=== PATIENT | female | born 1960 | race Two or more races ===

== ENCOUNTER 2024-05-07 14:12 | Inpatient (IN) | payer MEDICAID, OTHER ==
[~2024-05-07] VITALS: Ht 157.5 cm; Wt 98.4 kg
--- NOTE | 2024-05-07 14:55 | DVH ---
CT HEAD WITHOUT CONTRAST INDICATION: DIZZINESS EXAM DATE: 05/07/2024 02:35 PM COMPARISON: None RADIATION DOSE: CTDIvol: 54 mGy, DLP: 865 mGy*cm PROCEDURE: CT scans of the head were obtained from the vertex to the skull base. Sagittal and coronal reconstructions were provided. All CT scans at this medical facility are performed using dose modulation techniques as appropriate t o a performed exam including the following: Automated exposure control was utilized; adjustment of th e MA and/or KV according to patient size; and use of iterative reconstruction technique. FINDINGS: Left temporal, parietal lobe encephalomalacia with a left temporal craniectomy defect. The re is sulcal and ventricular prominence. The brain otherwise shows normal morphology and see-white m atter differentiation, without intracranial hemorrhage, extra-axial fluid collection, mass effect or acute large vessel infarct. The basal cisterns are patent. The skull and visible facial bones are int act. The paranasal sinuses, mastoid air cells and middle ear cavities are well-aerated. The soft tiss ues of the scalp are unremarkable. IMPRESSION: Left temporal, parietal lobe encephalomalacia with a left temporal craniectomy defect. No acute intracranial abnormality.
--- NOTE | 2024-05-07 14:58 | ED.PDOC ---
History of Present Illness HPI Comments 63 year old female presents to the ED with a chief complaint of facial numbness onset today. Patient states she is currently experiencing LT sided facial numbness, Lt side weakness and dizziness. Patient has a PMHx fibromyalgia and Aneurysm. Denies chest pain, shortness of breath, nausea, vomiting, diarrhea. No other symptoms or modifying factors present at this time. Chief Complaint: Dizziness Time Seen by MD: 14:42 Primary Care Provider: NONE Reviewed Notes: Medications, Allergies Allergies: Coded Allergies: NO KNOWN ALLERGIES (Unverified , 05/07/24) Information Source: Patient Mode of Arrival: Ambulatory Severity: Moderate Timing: Hours Duration: Since onset Prehospital treatment: None Past Medical History Surgical History: Denies all surgeries STUDY COORDINATOR History: No Pertinent STUDY COORDINATOR History Social History Smoker: Non-Smoker Alcohol: Denies ETOH Use Drugs: Denies Drug Use Lives In: Home Constitutional: denies: chills, diaphoresis, fatigue, fever, malaise, sweats, weakness, others EENTM: denies: blurred vision, double vision, ear bleeding, ear discharge, ear drainage, ear pain, ear ringing, eye pain, eye redness, hearing loss, mouth pain, mouth swelling, nasal discharge, nose bleeding, nose congestion, nose pain, photophobia, tearing, throat pain, throat swelling, voice changes, others Respiratory: denies: cough, hemoptysis, orthopnea, SOB at rest, shortness of breath, SOB with excertion, stridor, wheezing, others Cardiovascular: denies: chest pain, dizzy spells, diaphoresis, Dyspnea on exertion, edema, irregular heart beat, left arm pain, lightheadedness, palpitations, PND, syncope, others Gastrointestinal: denies: abdomen distended, abdominal pain, blood streaked bowels, constipated, diarrhea, dysphagia, difficulty swallowing, hematemesis, melena, nausea, poor appetite, poor fluid intake, rectal bleeding, rectal pain, vomiting, others Genitourinary: denies: abnormal vagina bleeding, burning, dyspareunia, dysuria, flank pain, frequency, hematuria, incontinence, pain, , vagina discharge, urgency, others Neurological: reports: dizziness, left sided numbness (facial ), numbness (facial); denies: fainting, headache, left sided weakness, paresthesia, pre- existing deficit, right sided numbness, right sided weakness, seizure, speech problems, tingling, tremors, weakness, others Musculoskeletal: denies: back pain, gout, joint pain, joint swelling, muscle pain, muscle stiffness, neck pain, others Integumetry: denies: bruises, change in color, change in hair/nails, dryness, laceration, lesions, lumps, rash, wounds, others Allergic/Immunocompromised: denies: Difficulty Healing, Frequent Infections, Hives, Itching, others Hematologic/Lymphatic: denies: anemia, blood clots, easy bleeding, easy bruising, swollen glands, others Endocrine: denies: excessive hunger, excessive sweating, excessive thirst, excessive urination, flushing, intolerance to cold, intolerance to heat, unexplained weight gain, unexplained weight loss, others Psychiatric: denies: anxiety, bipolar disorder, depression, hopeless, panic disorder, schizophrenia, sleepless, suicidal, others All Other Systems: Reviewed and Negative Physical Exam General Appearance: Moderate Distress HEENT: Normal ENT Inspection, Pharynx Normal, TMs Normal Neck: Full Range of Motion, Non-Tender, Normal, Normal Inspection Respiratory: Chest Non-Tender, Lungs Clear, No Accessory Muscle Use, No Respiratory Distress, Normal Breath Sounds Cardiovascular: No Edema, No JVD, No Murmur, No Gallop, Normal Peripheral Puls es, Regular Rate/Rhythm Breast Exam: Deferred Gastrointestinal: No Organomegaly, Non Tender, No Pulsatile Mass, Normal Bowel Sounds, Soft Genitalia: Deferred Pelvic: Deferred Rectal: Deferred Extremities: No calf tenderness, Normal capillary refill, Normal inspection, Normal range of motion, Non-tender, No pedal edema Musculoskeletal : Apperance: Normal Neurologic: Alert, 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 Was a procedure done?: No Differential Dx Considerations may include: Autonomic disorder. Electrolyte imbalance X-Ray, Labs, Meds, VS Vital Signs Date Time Temp Pulse Resp B/P (MAP) Pulse Ox O2 Delivery O2 Flow Rate FiO2 05/07/24 14:21 87 05/07/24 14:18 98.0 94 18 175/75 (108) 96 Lab Test 05/07/24 15:02 Range/Units White Blood Count 8.0 4.4-10.8 10^3/uL Red Blood Count 4.56 4.0-5.20 10^6/uL Hemoglobin 13.9 12.2-16.2 g/dL Hematocrit 40.7 36.0-46.0 % Mean Corpuscular Volume 89.3 80.0-100.0 fL Mean Corpuscular Hemoglobin 30.6 28.0-32.0 pg Mean Corpuscular Hemoglobin Concent 34.2 32.0-36.0 g/dL Red Cell Distribution Width 13.6 11.8-14.3 % Platelet Count 345 140-450 10^3/uL Mean Platelet Volume 8.7 6.9-10.8 fL Neutrophils (%) (Auto) 55.0 37.0-80.0 % Lymphocytes (%) (Auto) 35.4 10.0-50.0 % Monocytes (%) (Auto) 8.1 0.0-12.0 % Eosinophils (%) (Auto) 0.8 0.0-7.0 % Basophils (%) (Auto) 0.7 0.0-2.0 % Neutrophils # (Auto) 4.4 1.6-8.6 10 ^3/uL Lymphocytes # (Auto) 2.8 0.4-5.4 10 ^3/uL Monocytes # (Auto) 0.7 0-1.3 10 ^3/uL Eosinophils # (Auto) 0.1 0-0.8 10 ^3/uL Basophils # (Auto) 0.1 0-0.2 10 ^3/uL Nucleated Red Blood Cells 0.0 % Sodium Level 141 136-145 mmol/L Potassium Level 3.5 3.5-5.1 mmol/L Chloride Level 105 98-107 mmol/L Carbon Dioxide Level 31 20-31 mmol/L Anion Gap 5 5-15 Blood Urea Nitrogen 9 9-23 mg/dL Creatinine 0.67 0.550-1.02 mg/dL Glomerular Filtration Rate Calc 99 >90 mL/min BUN/Creatinine Ratio 13.4 10.0-20.0 Serum Glucose 99 74-106 mg/dL Calcium Level 9.6 8.7-10.4 mg/dL Patient alert. Complaining of dizziness. Vitals stable. Answering all questions. WBC within normal limits. Blood pressure elevated. Was given clonidine. CT of the head reviewed does not show any acute changes. Possibly will need MRI. Explained to the patient. Continue cardiac monitoring. Time of 1ST Reevaluation: 15:12 Reevaluation 1ST: Unchanged Patient Education/Counseling: Diagnosis, Treatment, Prognosis Family Education/Counseling: No Family Present Additional Information I reviewed the following notes from patient's past medical encounters: The following tests were ordered, and results were reviewed by me: EKG, CT HEAD WITHOUT CONTRAST, CBC, UA, BMP I reviewed and agreed with the following test results read by other providers:CT HEAD WITHOUT CONTRAST I discussed treatment and results with medical personnel and patient Departure 1 Departure Time of Disposition: 16:35 Impression: Primary Impression: Autonomic disorder Additional Impression: Hypertension Qualified Codes: I10 - Essential (primary) hypertension Disposition: ADMITTED INPATIENT Admit to: Med Surg Condition: Guarded Critical Care Note Critical Care Time?: No Stability Stability form required: No Heart Score Heart Score: Heart Score Response (Comments) Value History N/A 0 EKG N/A 0 Age N/A 0 Risk Factors N/A 0 Troponin N/A 0 Total 0 I personally scribed for ROBIN CASTORENA MD ([email or web address]) on 05/07/24 at 14:58. Electronically submitted by Sandrita Klein ([email or web address]). I personally scribed for ROBIN CASTORENA MD ([email or web address]) on 05/07/24 at 15:07. Electronically submitted by Sandrita Klein ([email or web address]). ROBIN CASTORENA MD May 07, 2024 14:58
[2024-05-07 15:29] LABS: Basophils # (auto) 0.1 10 ^3/uL (0-0.2); Basophils % (auto) 0.7 % (0.0-2.0); Eosinophils # (auto) 0.1 10 ^3/uL (0-0.8); Eosinophils % (auto) 0.8 % (0.0-7.0); Hematocrit 40.7 % (36.0-46.0); Hemoglobin 13.9 g/dL (12.2-16.2); Lymphocytes # (auto) 2.8 10 ^3/uL (0.4-5.4); Lymphocytes % (auto) 35.4 % (10.0-50.0); Mean Corpuscular Hemoglobin 30.6 pg (28.0-32.0); Mean Corpuscular Hgb Conc. 34.2 g/dL (32.0-36.0); Mean Corpuscular Volume 89.3 fL (80.0-100.0); Monocytes # (auto) 0.7 10 ^3/uL (0-1.3); Monocytes % (auto) 8.1 % (0.0-12.0); Neutrophils # (auto) 4.4 10 ^3/uL (1.6-8.6); Platelet Count (auto) 345 10^3/uL (140-450); Red Blood Cells 4.56 10^6/uL (4.0-5.20); Red Cell Distribution Width 13.6 % (11.8-14.3)
[2024-05-07 15:35] LABS: Chloride 105 mmol/L (98-107); Potassium 3.5 mmol/L (3.5-5.1); Sodium 141 mmol/L (136-145)
[2024-05-07 15:36] LABS: Anion Gap 5 (5-15); Calcium 9.6 mg/dL (8.7-10.4); Carbon Dioxide 31 mmol/L (20-31)
[2024-05-07 15:41] LABS: BUN/Creatinine Ratio 13.4 (10.0-20.0); Blood Urea Nitrogen 9 mg/dL (9-23); Glucose 99 mg/dL (74-106)
[2024-05-07] MEDS: cloNIDine HCL 0.1 MG TAB PO ONE (17:20)
[2024-05-07] MEDS: MECLIZINE HCL 25 MG TAB PO ONE (17:20)
--- NOTE | 2024-05-07 20:52 | DVHHPRES ---
History of Present Illness Resident Creating Document: NERI DE LUNA RESIDENT History of Present Illness This is a 63 years old female with past medical history of fibromyalgia, osteoarthritis, hypertension presented to the ED with a chief complaint of dizziness, tingling and numbness in the left face and arm for 1 days prior to this admission. The patient states that she started experiencing numbness in the left face, mostly in the lips and also numbness in the left upper arm associated with dizziness and pain in the back of the neck. She measured blood pressure in the home which was elevated. She also mentioned had history of leaking of brain aneurysm 20 years ago and underwent a procedure but she did not remember the name of the procedure. The patient denies headache, blurry of vision, chest pain, shortness of breath, diaphoresis abdominal pain, nausea, vomiting, any weakness in any parts of the body or any change in bowel and bladder habit. Past Medical History Fibromyalgia, osteoarthritis, hypertension, brain aneurysm Past Surgical History None Family History Type 2 diabetes mellitus and Alzheimer dementia runs in the family. Past Social History Lives with family Nonsmoker, nonalcoholic and never tried any drugs. Review of Systems Constitutional: No: Fever, Chills, Sweats, Weakness, Malaise, Other Eyes: No: Pain, Vision change, Conjunctivae inflammation, Eyelid inflammation, Other, Redness ENT: No: Ear pain, Ear discharge, Nose pain, Nose discharge, Nose congestion, Mouth pain, Mouth swelling, Throat pain, Throat swelling, Other Respiratory: No: Cough, Dry, Shortness of breath, SOB with excertion, Wheezing, Hemoptysis, Pleuritic Pain, Sputum, Wheezing, Other Cardiovascular: Lt Headedness; No: Chest Pain, Palpitations, Orthopnea, Paroxysmal Noc. Dyspnea, Edema, Other Gastrointestinal: No: Nausea, Vomiting, Abdominal Pain, Diarrhea, Constipation, Melena, Hematochezia, Other Genitourinary: No Dysuria, No Frequency, No Incontinence, No Hematuria, No Retention, No Other Musculoskeletal: No: other, neck pain, shoulder pain, arm pain, back pain, hand pain, leg pain, foot pain Skin: No: Rash, Lesions, Jaundice, Bruising, Other Neurological: No: Weakness, Numbness, Incoordination, Change in speech, Confusion, Seizures, Other Allergies: Coded Allergies: NO KNOWN ALLERGIES (Unverified , 05/07/24) Exam Vital Signs Vital Signs Date Time Temp Pulse Resp B/P (MAP) Pulse Ox O2 Delivery O2 Flow Rate FiO2 05/07/24 17:20 148/83 05/07/24 14:21 87 05/07/24 14:18 98.0 18 96 Exam Physical examination: General Appearance: Alert, Oriented X3, Cooperative, No acute distress HEENT: Atraumatic, PERRLA, EOMI, Mucous membrane moist/pink Respiratory: Clear to auscultation, Normal air movement Cardiovascular: Regular rate, Normal S1, Normal S2, No murmurs, no chest wall tenderness Abdominal: Normal bowel sounds, Soft, No tenderness, No hepatospenomegaly, No masses Extremities: No clubbing, No cyanosis, No edema, Normal pulses, No tenderness/swelling Skin: No rashes, No breakdown, No significant lesion Neuro: Normal gait, Normal speech, Strength at 5/5 X4 ext, Normal tone, Sensation intact, grossly intact cranial nerves. Psych/Mental Status: Mental status NL, Mood NL Labs/Xrays Labs Test 05/07/24 15:02 Range/Units White Blood Count 8.0 4.4-10.8 10^3/uL Red Blood Count 4.56 4.0-5.20 10^6/uL Hemoglobin 13.9 12.2-16.2 g/dL Hematocrit 40.7 36.0-46.0 % Mean Corpuscular Volume 89.3 80.0-100.0 fL Mean Corpuscular Hemoglobin 30.6 28.0-32.0 pg Mean Corpuscular Hemoglobin Concent 34.2 32.0-36.0 g/dL Red Cell Distribution Width 13.6 11.8-14.3 % Platelet Count 345 140-450 10^3/uL Mean Platelet Volume 8.7 6.9-10.8 fL Neutrophils (%) (Auto) 55.0 37.0-80.0 % Lymphocytes (%) (Auto) 35.4 10.0-50.0 % Monocytes (%) (Auto) 8.1 0.0-12.0 % Eosinophils (%) (Auto) 0.8 0.0-7.0 % Basophils (%) (Auto) 0.7 0.0-2.0 % Neutrophils # (Auto) 4.4 1.6-8.6 10 ^3/uL Lymphocytes # (Auto) 2.8 0.4-5.4 10 ^3/uL Monocytes # (Auto) 0.7 0-1.3 10 ^3/uL Eosinophils # (Auto) 0.1 0-0.8 10 ^3/uL Basophils # (Auto) 0.1 0-0.2 10 ^3/uL Nucleated Red Blood Cells 0.0 % Sodium Level 141 136-145 mmol/L Potassium Level 3.5 3.5-5.1 mmol/L Chloride Level 105 98-107 mmol/L Carbon Dioxide Level 31 20-31 mmol/L Anion Gap 5 5-15 Blood Urea Nitrogen 9 9-23 mg/dL Creatinine 0.67 0.550-1.02 mg/dL Glomerular Filtration Rate Calc 99 >90 mL/min BUN/Creatinine Ratio 13.4 10.0-20.0 Serum Glucose 99 74-106 mg/dL Calcium Level 9.6 8.7-10.4 mg/dL Assessment/Plan Assessment/Plan Assessment and plan: # Dizziness and numbness likely due to TIA, rule out Stroke - CT head without contrast revealed no acute intracranial abnormality. - Neurological exam did not reveal any focal motor weakness , sensory abnormality, incoordination or any gait abnormality. - Aspirin 325 mg p.o. once followed by aspirin 81 mg p.o. daily and clopidogrel 75 mg daily. - Atorvastatin 20 mg p.o. at HS # Dizziness likely due to autonomic instability - Ordered Orthostatic vitals, echo, carotid doppler, B12 and folic acid # Hypertensive urgency - Clonidine 0.1 mg po once - Losartan 25 mg po daily # Type 2 diabetes mellitus, HbA1C 6.6 - Mild sliding scale of insulin # PUD prophylaxis - Pepcid 20 mg po daily. # DVT prophylaxis - Lovenox 40 mg sc daily. Goal of care discussed with the patient for more than 20 minutes full code Plan discussed with Dr. Murdock Plan discussed with: Patient, Other My Orders Orders - NERI DE LUNA Procedure Category Date Status Time Admit ADMIT 05/07/24 Transmitted 20:50 Date of Service: May 07, 2024 Billing Provider: MAT MURDOCK MD Common Visit Codes: [id number] INP/OBS CARE (HIGH) Secondary Visit Codes: [id number] CARE PLAN 30 MINUTES NERI DE LUNA May 07, 2024 20:52 MAT MURDOCK MD May 08, 2024 20:12
[2024-05-07 23:48] VITALS: PULSE 78; RESP 18; O2SAT 100
[2024-05-07] MEDS: ASPirin-EC 325mg tab PO ONE (23:58)
[2024-05-07] MEDS: CLOPIDOGREL BISULFATE 75 MG TAB PO ONE (23:58)
[2024-05-07] MEDS: GABAPENTIN 300 MG CAP PO SCH (23:59)
[2024-05-07] MEDS: ATORVASTATIN 20 MG TAB PO SCH (23:59)
[2024-05-08 00:19] LABS: COVID19 ANTIGEN SOFIA FIA NEGATIVE (NEGATIVE); Rapid Influenza A Negative (Negative); Rapid Influenza B Negative (Negative)
[2024-05-08 02:06] LABS: Urine Bacteria FEW /hpf (None Seen); Urine Blood Negative /uL (Negative); Urine Clarity Turbid (Clear); Urine Color Yellow (Yellow); Urine Mucus FEW (None Seen); Urine Protein, UAD TRACE (Negative); Urine Squamous Epithelial Cell MOD /hpf (<5); Urine Urobilinogen Normal (Negative); Urine WBC 4 /hpf (0 - 5); Urine pH 5.5 (5.0-9.0)
[2024-05-08 02:14] LABS: Amphetamine Screen, Urine Neg (NEGATIVE); Barbiturate Scree,Urine Neg (NEGATIVE); Benzodiazephine Screen, Urine Neg (NEGATIVE); Cannabinoid Screen, Urine Neg (NEGATIVE); Cocaine Screen, Urine Neg (NEGATIVE); Opiate Scree,Urine Neg (NEGATIVE); Phencyclidine Screen, Urine Neg (NEGATIVE)
[2024-05-08 04:37] VITALS: BP 112/67; PULSE 78; TEMP 97.6; O2SAT 98
[2024-05-08] MEDS ORDERED: ATOR20TA50 PO (04:43)
[2024-05-08] MEDS ORDERED: ALBU108A5 INH (04:43)
[2024-05-08 08:00] VITALS: PULSE 68; RESP 18; O2SAT 94
[2024-05-08 08:51] VITALS: BP 117/62; PULSE 68; RESP 18; TEMP 97.7; O2SAT 94
--- NOTE | 2024-05-08 09:44 | DVH ---
Carotid Duplex Clinical History: Dizziness Comparison: None Technique: Duplex Doppler evaluation of the extracranial carotid and vertebral arteries including color Doppler and spectral/pulsed waveform analysis was performed. Findings: RIGHT SIDE: The peak systolic velocities are 79 cm/s in the CCA, 85 cm/s in the ICA. The ICA/CCA ratio is 1.1. The external carotid artery is patent with peak systolic velocity of 72 cm/s proximally. There is appropriate antegrade flow in the right vertebral artery. LEFT SIDE: The peak systolic velocities are 63 cm/s in the CCA, 79 cm/s in the ICA. The ICA/CCA ratio is 1.2. The external carotid artery is patent with peak systolic velocity of 72 cm/s proximally. There is appropriate antegrade flow in the left vertebral artery. IMPRESSION: No hemodynamically significant stenosis noted in the right carotid system. No hemodynamically significant stenosis noted in the left carotid system. Reference: Radiology 2003; 229:340-346 Normal ICA PSV is <125 cm/sec and no plaque or intimal thickening is visible sonographically additional criteria include ICA/CCA PSV ratio <2.0 and ICA EDV <40 cm/sec <50% ICA stenosis ICA PSV is <125 cm/sec and plaque or intimal thickening is visible sonographically additional criteria include ICA/CCA PSV ratio <2.0 and ICA EDV <40 cm/sec 50-69% ICA stenosis ICA PSV is 125-230 cm/sec and plaque is visible sonographically additional criteria include ICA/CCA PSV ratio of 2.0-4.0 and ICA EDV of 40-100 cm/sec 70% ICA stenosis but less than near occlusion ICA PSV is >230 cm/sec and visible plaque and luminal narrowing are seen at see-scale and color Dopp ler ultrasound (the higher the Doppler parameters lie above the threshold of 230 cm/sec, the greater the likelihood of severe disease) additional criteria include ICA/CCA PSV ratio >4 and ICA EDV >100 cm/sec
[2024-05-08] MEDS: LOSARTAN POTASSIUM 25 MG TAB PO SCH (09:56)
[2024-05-08] MEDS: CLOPIDOGREL BISULFATE 75 MG TAB PO SCH (09:57)
[2024-05-08] MEDS: ENOXAPARIN SOD 40 MG/0.4 ML SYRINGE SC SCH (09:57)
[2024-05-08] MEDS: ASPirin-EC 81 mg tab PO SCH (09:57)
[2024-05-08] MEDS: FAMOTIDINE 20 MG TAB PO SCH (09:57)
[2024-05-08 11:20] LABS: Folate (Folic Acid) 14.79 ng/mL (>5.38)
--- NOTE | 2024-05-08 12:47 | DVHSR ---
APPROVED REPORT EXAM: Two-dimensional and M-mode echocardiogram with Doppler and color Doppler. Blood Pressure: 112/67 mmHg INDICATION Dizziness RISK FACTORS Height: 62, Weight: 209 DIMENSIONS LVDd4.4 (3.8-5.7cm)LA (2D)3.8 (1.9-4.0cm)Aortic Root2.8 (2.0-3.7cm) LVDs3.0 (2.5-4.0cm)LA (MM) (1.9-4.0cm)Aortic Cusp Exc1.7 (1.5-2.0cm) EF (%) 60.0 (55-70%)Rt. Atrium4.0 (1.9-4.0cm)Asc. Aorta cm IVSd1.1 (0.7-1.1cm)RV (D) (1.8-2.4cm) PWd1.1 (0.7-1.1cm) Mitral Valve MitralMitral Stenosis E wave0.70m/sMV Mean GR.mmHg A wave0.90m/sMV Peak GR.mmHg E/A ratio0.82D MVAcm2 DECEL [id number] 1/2 [id number] IVRTmsDop MVA3.25cm2 Aortic Valve Aortic ValveAortic Stenosis V11.19m/Leslie Mean GR.5mmHg V21.55m/Leslie Peak GR.10mmHg LVOT Diameter2.0 (1.8-2.4cm)Doppler AVA2.41cm2 Pulmonic Valve V20.79m/s Tricuspid Valve TR Velocity2.03m/s [id number] LEFT VENTRICLE Normal left ventricular size. Ejection fraction is normal and is estimated at 60%. There is no matthew onal wall motion abnormalities. Diastolic function is preserved. E to E prime ratio is in the karlo l range. LV wall thickness is normal. RIGHT VENTRICLE Normal size and systolic function. ATRIA Both atria are of normal size. MITRAL VALVE Normal structure and function. No significant mitral regurgitation. PULMONIC VALVE Likely normal. TRICUSPID VALVE Normal structure and function. There is trace tricuspid regurgitation. PA systolic pressure is florentin mated at 28 mm Hg. AORTIC VALVE Trileaflet in structure. Normal structure and function. GREAT VESSELS Aortic root is of normal size. Proximal ascending aorta is not well visualized. PERICARDIAL EFFUSION There is no pericardial effusion. IVC is dilated in size. It Collapses less than 50% with inspirati on. Conclusion Normal left ventricular size and with ejection fraction of 60%. Normal right ventricular size and systolic function. No hemodynamically significant valvular disease. No significant pericardial effusion. PA systolic pressure is estimated at 28 mm Hg.
--- NOTE | 2024-05-08 12:51 | DVHPN2 ---
Reviewed: Care Plan, H&P, Labs, Medications, Previous Orders, Radiology Changes from previous H/P or p: No Changes Eyes: No Pain, No Vision change, No Conjunctivae inflammation, No Eyelid inflammation, No Other, No Redness ENT: No Ear pain, No Ear discharge, No Nose pain, No Nose discharge, No Nose congestion, No Mouth pain, No Mouth swelling, No Throat pain, No Throat swelling, No Other Cardiovascular: No Chest Pain, No Palpitations, No Orthopnea, No Paroxysmal Noc. Dyspnea, No Edema; Lt Headedness; No Other Respiratory: No Cough, No Dry, No Shortness of breath, No SOB with excertion, No Wheezing, No Hemoptysis, No Pleuritic Pain, No Sputum, No Other Gastrointestinal: No Nausea, No Vomiting, No Abdominal Pain, No Diarrhea, No Constipation, No Melena, No Hematochezia, No Other Genitourinary: No Dysuria, No Frequency, No Incontinence, No Hematuria, No Retention, No Other Musculoskeletal: No other, No neck pain, No shoulder pain, No arm pain, No back pain, No hand pain, No leg pain, No foot pain Skin: No Rash, No Lesions, No Jaundice, No Bruising, No Other Objective Vitals Vital Signs Date Time Temp Pulse Resp B/P (MAP) Pulse Ox O2 Delivery O2 Flow Rate FiO2 05/08/24 09:56 117/62 05/08/24 08:51 97.7 68 18 94 97.7 05/08/24 08:00 Room Air* 0 21 Medications Current Medications Medications Dose Ordered Sig/Obi Route Start Time Stop Time Status Last Admin Dose Admin Aspirin 81 mg DAILY PO 05/08/24 10:00 05/08/24 09:57 81 MG Atorvastatin Calcium 20 mg HS PO 05/07/24 22:00 05/07/24 23:59 20 MG Clopidogrel Bisulfate 75 mg DAILY PO 05/08/24 10:00 05/08/24 09:57 75 MG Gabapentin 600 mg TID PO 05/07/24 22:00 05/08/24 05:42 600 MG Losartan Potassium 25 mg DAILY PO 05/08/24 10:00 05/08/24 09:56 25 MG Famotidine 20 mg DAILY PO 05/08/24 10:00 05/08/24 09:57 20 MG Enoxaparin Sodium 40 mg DAILY SC 05/08/24 10:00 05/08/24 09:57 40 MG Laboratory Results Laboratory Tests 05/07/24 15:02 Chemistry Test 05/07/24 15:02 Calcium Level 9.6 mg/dL (8.7-10.4) HgA1c, TSH Test 05/07/24 15:02 Hemoglobin A1c 6.6 % A1C (<5.7) H Thyroid Stimulating Hormone (TSH) 2.14 uIU/mL (0.55-4.78) Urinalysis Test 05/07/24 23:42 Urine Color Yellow (Yellow) Urine Clarity Turbid (Clear) H Urine pH 5.5 (5.0-9.0) Urine Specific [place] 1.030 (1.001-1.035) Urine Protein Trace (Negative) H Urine Ketones Negative (Negative) Urine Blood Negative /uL (Negative) Urine Nitrite Negative (Negative) Urine Bilirubin Negative (Negative) Urine Urobilinogen Normal mg/dL (Negative) Urine Leukocyte Esterase Negative /uL (Negative) Urine RBC <1 /hpf (0 - 4) Urine WBC 4 /hpf (0 - 5) Urine Squamous Epithelial Cells Mod /hpf (<5) Urine Calcium Oxalate Crystals Many (None Seen) Urine Bacteria Few /hpf (None Seen) H Urine Mucus Few (None Seen) Urine Glucose Normal mg/dL (Normal) Microbiology Microbiology Date/Time Source Procedure Growth Status 05/08/24 05:45 Nose MRSA Screen - Final Complete Labs and/or images reviewed: Labs reviewed by me, Image(s) reviewed by me Assessment/Plan Assessment/Plan Dizziness and numbness likely TIA: Rule out stroke: Consult for tele neurologist Autonomic instability Hypertensive urgency Type 2 diabetes A1c 6.6 Fibromyalgia Hypertensive urgency History of brain aneurysm Osteoarthritis CT head negative for any acute changes Carotid ultrasound negative Time spent 55 minute Plan discussed with: Patient Date of Service: May 08, 2024 Billing Provider: BYRON RUIZ MD Common Visit Codes: [id number] INP/OBS CARE(HIGH) BYRON RUIZ MD May 08, 2024 12:51
[2024-05-08 12:56] VITALS: BP 139/74; PULSE 73; RESP 18; TEMP 97.8; O2SAT 96
--- NOTE | 2024-05-08 14:11 | ECG ---
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
--- NOTE | 2024-05-08 14:29 | BSKYNEURO ---
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 The left arm/neck numbness/discomfort resolved. Hard to keep the right eye open. # Scores Time of exam and NIHSS (): 05/08/2024, 14:25 Level of Consciousness 1a: [0] = Alert; keenly responsive LOC Questions 1b: [0] = Answers both questions correctly LOC Commands 1c: [0] = Performs both tasks correctly Best Gaze 2: [0] = Normal Visual 3: [0] = No visual loss Facial Palsy 4: [0] = Normal symmetrical movements Motor Arm Left 5a: [0] = No drift Motor Arm Right 5b: [0] = No drift Motor Leg Left 6a: [0] = No drift Motor Leg Right 6b: [0] = No drift Limb Ataxia 7: [0] = Absent Sensory 8: [1] = [id number] sensory loss Best Language 9: [0] = No aphasia Dysarthria 10: [0] = Normal Extinction and Inattention 11: [0] = No abnormality NIHSS Total: 1 # Data Head CT: - no bleed - per radiologist read left temporoparietal encephalomalacia Other Imaging: Carotid doppler ultrasound without evidence of hemodynamically significant stenosis # Assessment Impression: r/o stroke # Plan Thrombolytic/Intervention: NOT IV Thrombolysis or IA Intervention candidate Thrombolytic Exclusion: > 4.5 hours Intraarterial Exclusion: - non-disabling - clinical exam not consistent with presence of large vessel occlusion (LVO), can reconsider if LVO found on vascular imaging Target Blood Pressure: - SBP < 220 - DBP < 105 Labs: - hemoglobin A1c - lipid panel Imaging: (urgency: routine): - MRI Brain without contrast - MR Angiogram Head without contrast Diagnostic Test: - echo without bubble study Therapy/Evaluation: - PT/OT evaluation - speech/swallow consultation Medication: ASA 81 daily Plavix 75 daily x3 weeks Atorvastatin 80, then tailor to LDL < 70 goal DVT Prophylaxis: - SCD - chemical DVT prophylaxis Other: - If patient has any neurological deterioration please call me back immediately - permissive hypertension - telemetry monitoring - I have discussed my recommendations with the referring provider Disposition: admit # Logistics Attestation of consult completion: The patient is located at: [facility]. Facility staff participated in the visit. I performed this telemedicine visit from my offsite office utilizing interactive 2 way audio and visual telecommunication technology. Consent: Verbal consent was obtained from the patient and/or family for this encounter. Total time spent in telemedicine encounter: I spent 15 minutes reviewing cli nical data and/or imaging, obtaining history, examining the patient, communicating with the onsite care team, and in preparation of this report. Electronically signed at 05/08/2024 14:29 ([place] Time) by Javon Hussein MD Yes JAVON HUSSEIN MD May 08, 2024 14:29
[2024-05-08 16:34] VITALS: BP 120/64; PULSE 75; RESP 16; TEMP 97.5; O2SAT 94
[2024-05-08 21:00] VITALS: BP 109/61; PULSE 79; RESP 16; TEMP 98.8; O2SAT 100
[2024-05-09] VITALS (7 sets, daily range): BP systolic 103–117; BP diastolic 50–79; PULSE 73–100; RESP 16–17; TEMP 97.6–98.7; O2SAT 94–97
--- NOTE | 2024-05-09 10:26 | DVHPN2 ---
Reviewed: Care Plan, H&P, Labs, Medications, Previous Orders, Radiology Changes from previous H/P or p: No Changes Eyes: No Pain, No Vision change, No Conjunctivae inflammation, No Eyelid inflammation, No Other, No Redness ENT: No Ear pain, No Ear discharge, No Nose pain, No Nose discharge, No Nose congestion, No Mouth pain, No Mouth swelling, No Throat pain, No Throat swelling, No Other Cardiovascular: No Chest Pain, No Palpitations, No Orthopnea, No Paroxysmal Noc. Dyspnea, No Edema; Lt Headedness; No Other Respiratory: No Cough, No Dry, No Shortness of breath, No SOB with excertion, No Wheezing, No Hemoptysis, No Pleuritic Pain, No Sputum, No Other Gastrointestinal: No Nausea, No Vomiting, No Abdominal Pain, No Diarrhea, No Constipation, No Melena, No Hematochezia, No Other Genitourinary: No Dysuria, No Frequency, No Incontinence, No Hematuria, No Retention, No Other Musculoskeletal: No other, No neck pain, No shoulder pain, No arm pain, No back pain, No hand pain, No leg pain, No foot pain Skin: No Rash, No Lesions, No Jaundice, No Bruising, No Other Objective Vitals Vital Signs Date Time Temp Pulse Resp B/P (MAP) Pulse Ox O2 Delivery O2 Flow Rate FiO2 05/09/24 09:45 103/50 05/09/24 08:53 97.6 73 16 94 97.6 05/08/24 20:00 Room Air* 0 21 Intake/Output Intake and Output 05/09/24 07:00 Intake Total 788 ml Balance 788 ml Intake Oral 788 ml # Voids 4 Medications Current Medications Medications Dose Ordered Sig/Obi Route Start Time Stop Time Status Last Admin Dose Admin Aspirin 81 mg DAILY PO 05/08/24 10:00 05/09/24 09:45 81 MG Clopidogrel Bisulfate 75 mg DAILY PO 05/08/24 10:00 05/09/24 09:45 75 MG Gabapentin 600 mg TID PO 05/07/24 22:00 05/09/24 05:50 600 MG Losartan Potassium 25 mg DAILY PO 05/08/24 10:00 05/09/24 09:45 25 MG Famotidine 20 mg DAILY PO 05/08/24 10:00 05/09/24 09:45 20 MG Enoxaparin Sodium 40 mg DAILY SC 05/08/24 10:00 05/09/24 09:45 40 MG Atorvastatin Calcium 80 mg HS PO 05/09/24 10:30 UNV Laboratory Results Laboratory Tests 05/07/24 15:02 Urinalysis Test 05/07/24 23:42 Urine Color Yellow (Yellow) Urine Clarity Turbid (Clear) H Urine pH 5.5 (5.0-9.0) Urine Specific [place] 1.030 (1.001-1.035) Urine Protein Trace (Negative) H Urine Ketones Negative (Negative) Urine Blood Negative /uL (Negative) Urine Nitrite Negative (Negative) Urine Bilirubin Negative (Negative) Urine Urobilinogen Normal mg/dL (Negative) Urine Leukocyte Esterase Negative /uL (Negative) Urine RBC <1 /hpf (0 - 4) Urine WBC 4 /hpf (0 - 5) Urine Squamous Epithelial Cells Mod /hpf (<5) Urine Calcium Oxalate Crystals Many (None Seen) Urine Bacteria Few /hpf (None Seen) H Urine Mucus Few (None Seen) Urine Glucose Normal mg/dL (Normal) Microbiology Microbiology Date/Time Source Procedure Growth Status 05/08/24 05:45 Nose MRSA Screen - Final Complete Labs and/or images reviewed: Labs reviewed by me, Image(s) reviewed by me Assessment/Plan Assessment/Plan Dizziness and numbness likely TIA: Rule out stroke: Consult for tele neurologist Dr. Dakota Alejandro appreciated, placed on aspirin Plavix and Lipitor 80 mg p.o. daily, MRI brain without contrast and MRA angiogram brain without contrast pending Autonomic instability Hypertensive urgency Type 2 diabetes A1c 6.6 Fibromyalgia History of brain aneurysm Osteoarthritis CT head negative for any acute changes Carotid ultrasound negative Echo 60 % ejection fraction Time spent 55 minute Plan discussed with: Patient My Orders Orders - BYRON RUIZ MD Procedure Category Date Status Time [facility] Neuro Consult CONS 05/08/24 Transmitted 12:49 Cardiac DIET 05/08/24 Transmitted Diet-2gna,Lofat,Lochol Lunch Brain Head Wo Contrast MRI 05/09/24 Logged 10:18 Mra Angio Head Brain MRI 05/09/24 Logged 10:18 Atorvastatin (Lipitor) PHA 05/09/24 Transmitted 10:30 Date of Service: May 09, 2024 Billing Provider: BYRON RUIZ MD Common Visit Codes: [id number] INP/OBS CARE(HIGH) BYRON RUIZ MD May 09, 2024 10:26
--- NOTE | 2024-05-09 11:27 | DVH ---
MRA HEAD WITHOUT CONTRAST CLINICAL HISTORY: Right-sided facial weakness TECHNIQUE: MRA of the brain performed using 2D [id number] sequences. FINDINGS: There is origin of the right posterior cerebral artery. Intracranial arteries demonstrate appro priate flow signal without evidence of stenosis or occlusion. There is no evidence of intracranial an eurysm or arteriovenous malformation. Has been prior left frontal craniotomy. IMPRESSION: 1. Unremarkable MRA head. HS:Y
--- NOTE | 2024-05-09 11:32 | DVH ---
EXAMINATION: MRI BRAIN HEAD WO CONTRAST INDICATION: Right facial weakness COMPARISON: None TECHNIQUE: Multiplanar, multisequence magnetic resonance imaging of the brain was performed without the use of i ntravenous contrast. FINDINGS: There are postsurgical changes related to left frontal craniotomy. There is cystic encephalomalacia a nd mild gliosis in the left temporal frontal lobe, likely postsurgical. There is no restricted diffusion. There is no evidence of hemorrhage, mass, mass effect or midline s hift. There is no hydrocephalus or extra-axial fluid collection. The visualized intracranial vasculat ure demonstrates appropriate flow-voids. The sagittal midline structures appear unremarkable. The overhead crane technician niocervical junction is within normal limits. The calvarium demonstrates normal marrow signal. There is mucosal thickening in the left maxillary sinus. The mastoid air cells are clear. IMPRESSION: 1. There is no acute intracranial process. 2. Postsurgical changes as described above with cystic encephalomalacia and mild gliosis in the left anterior temporal lobe. HS:Y
[2024-05-09] MEDS: ATORVASTATIN 20 MG TAB PO SCH (12:11)
[2024-05-09 13:13] LABS: Cholesterol 168 mg/dL (< 200)
[2024-05-09 13:15] LABS: HDL Cholesterol 40 mg/dL (40-59); LDL Cholesterol 102 mg/dL (< 100); Triglycerides 180 mg/dL (< 150)
[2024-05-10 01:00] VITALS: BP 125/68; PULSE 89; RESP 18; TEMP 97.8; O2SAT 94
[2024-05-10 05:00] VITALS: BP 93/69; PULSE 95; RESP 17; TEMP 98.9; O2SAT 95
[2024-05-10 08:05] VITALS: PULSE 91; RESP 19; O2SAT 94
[2024-05-10 09:01] VITALS: BP 107/65; PULSE 91; RESP 19; TEMP 98; O2SAT 94
--- NOTE | 2024-05-10 10:31 | DVHPN2 ---
Reviewed: Care Plan, H&P, Labs, Medications, Previous Orders, Radiology Changes from previous H/P or p: No Changes Eyes: No Pain, No Vision change, No Conjunctivae inflammation, No Eyelid inflammation, No Other, No Redness ENT: No Ear pain, No Ear discharge, No Nose pain, No Nose discharge, No Nose congestion, No Mouth pain, No Mouth swelling, No Throat pain, No Throat swelling, No Other Cardiovascular: No Chest Pain, No Palpitations, No Orthopnea, No Paroxysmal Noc. Dyspnea, No Edema; Lt Headedness; No Other Respiratory: No Cough, No Dry, No Shortness of breath, No SOB with excertion, No Wheezing, No Hemoptysis, No Pleuritic Pain, No Sputum, No Other Gastrointestinal: No Nausea, No Vomiting, No Abdominal Pain, No Diarrhea, No Constipation, No Melena, No Hematochezia, No Other Genitourinary: No Dysuria, No Frequency, No Incontinence, No Hematuria, No Retention, No Other Musculoskeletal: No other, No neck pain, No shoulder pain, No arm pain, No back pain, No hand pain, No leg pain, No foot pain Skin: No Rash, No Lesions, No Jaundice, No Bruising, No Other Objective Vitals Vital Signs Date Time Temp Pulse Resp B/P (MAP) Pulse Ox O2 Delivery O2 Flow Rate FiO2 05/10/24 09:01 98.0 91 19 107/65 (79) 94 98.0 05/09/24 20:00 Room Air* 0 21 Intake/Output Intake and Output 05/10/24 07:00 Intake Total 1650 ml Balance 1650 ml Intake Oral 1650 ml # Voids 6 Medications Current Medications Medications Dose Ordered Sig/Obi Route Start Time Stop Time Status Last Admin Dose Admin Aspirin 81 mg DAILY PO 05/08/24 10:00 05/09/24 09:45 81 MG Clopidogrel Bisulfate 75 mg DAILY PO 05/08/24 10:00 05/09/24 09:45 75 MG Gabapentin 600 mg TID PO 05/07/24 22:00 05/10/24 05:44 600 MG Losartan Potassium 25 mg DAILY PO 05/08/24 10:00 05/09/24 09:45 25 MG Famotidine 20 mg DAILY PO 05/08/24 10:00 05/09/24 09:45 20 MG Enoxaparin Sodium 40 mg DAILY SC 05/08/24 10:00 05/09/24 09:45 40 MG Atorvastatin Calcium 80 mg HS PO 05/09/24 10:30 05/09/24 21:49 80 MG Laboratory Results Laboratory Tests 05/07/24 15:02 Lipid panel Test 05/09/24 11:37 Cholesterol Level 168 mg/dL (< 200) HDL Cholesterol 40 mg/dL (40-59) Triglycerides Level 180 mg/dL (< 150) H Urinalysis Test 05/07/24 23:42 Urine Color Yellow (Yellow) Urine Clarity Turbid (Clear) H Urine pH 5.5 (5.0-9.0) Urine Specific [place] 1.030 (1.001-1.035) Urine Protein Trace (Negative) H Urine Ketones Negative (Negative) Urine Blood Negative /uL (Negative) Urine Nitrite Negative (Negative) Urine Bilirubin Negative (Negative) Urine Urobilinogen Normal mg/dL (Negative) Urine Leukocyte Esterase Negative /uL (Negative) Urine RBC <1 /hpf (0 - 4) Urine WBC 4 /hpf (0 - 5) Urine Squamous Epithelial Cells Mod /hpf (<5) Urine Calcium Oxalate Crystals Many (None Seen) Urine Bacteria Few /hpf (None Seen) H Urine Mucus Few (None Seen) Urine Glucose Normal mg/dL (Normal) Microbiology Microbiology Date/Time Source Procedure Growth Status 05/08/24 05:45 Nose MRSA Screen - Final Complete Labs and/or images reviewed: Labs reviewed by me, Image(s) reviewed by me Assessment/Plan Assessment/Plan Dizziness and numbness likely TIA: Rule out stroke: Consult for tele neurologist Dr. Dakota Alejandro appreciated, placed on aspirin Plavix and Lipitor 80 mg p.o. daily, MRI brain without contrast and MRA angiogram brain , both are negative Autonomic instability Hypertensive urgency Type 2 diabetes A1c 6.6 Fibromyalgia History of brain aneurysm Osteoarthritis CT head negative for any acute changes Carotid ultrasound negative Echo 60 % ejection fraction Time spent 55 minute Plan discussed with: Patient Date of Service: May 10, 2024 Billing Provider: BYRON RUIZ MD Common Visit Codes: [id number] INP/OBS CARE(HIGH) BYRON RUIZ MD May 10, 2024 10:31
[2024-05-10] MEDS ORDERED: ATOR80TA PO (10:32)
[2024-05-10] MEDS ORDERED: ASPI-628 PO (10:32)
[2024-05-10] MEDS ORDERED: CLOP75TA28 PO (10:32)
--- NOTE | 2024-05-10 10:36 | DVHDS2 ---
Discharge Summary Date of Admission May 07, 2024 at 20:50 Date of Discharge: May 10, 2024 Admitting Diagnosis Dizziness Wounds: None Labs/Diagnostic Data: Laboratory Results Test 05/09/24 11:37 05/07/24 23:42 05/07/24 15:02 Triglycerides Level 180 mg/dL (< 150) Cholesterol Level 168 mg/dL (< 200) LDL Cholesterol 102 mg/dL (< 100) HDL Cholesterol 40 mg/dL (40-59) Urine Color Yellow (Yellow) Urine Clarity Turbid (Clear) Urine pH 5.5 (5.0-9.0) Urine Specific [place] 1.030 (1.001-1.035) Urine Protein Trace (Negative) Urine Ketones Negative (Negative) Urine Blood Negative /uL (Negative) Urine Nitrite Negative (Negative) Urine Bilirubin Negative (Negative) Urine Urobilinogen Normal mg/dL (Negative) Urine Leukocyte Esterase Negative /uL (Negative) Urine RBC <1 /hpf (0 - 4) Urine WBC 4 /hpf (0 - 5) Urine Squamous Epithelial Cells Mod /hpf (<5) Urine Calcium Oxalate Crystals Many (None Seen) Urine Bacteria Few /hpf (None Seen) Urine Mucus Few (None Seen) Urine Glucose Normal mg/dL (Normal) Urine Opiates Screen Neg (NEGATIVE) Urine Fentanyl Screen Neg (NEGATIVE) Urine Barbiturates Screen Neg (NEGATIVE) Urine Phencyclidine Screen Neg (NEGATIVE) Urine Amphetamines Screen Neg (NEGATIVE) Urine Benzodiazepines Screen Neg (NEGATIVE) Urine Cocaine Screen Neg (NEGATIVE) Urine Cannabinoids Screen Neg (NEGATIVE) Influenza Type A Antigen Negative (Negative) Influenza Type B Antigen Negative (Negative) SARS-CoV-2 Antigen (Rapid) Negative (NEGATIVE) White Blood Count 8.0 10^3/uL (4.4-10.8) Red Blood Count 4.56 10^6/uL (4.0-5.20) Hemoglobin 13.9 g/dL (12.2-16.2) Hematocrit 40.7 % (36.0-46.0) Mean Corpuscular Volume 89.3 fL (80.0-100.0) Mean Corpuscular Hemoglobin 30.6 pg (28.0-32.0) Mean Corpuscular Hemoglobin Concent 34.2 g/dL (32.0-36.0) Red Cell Distribution Width 13.6 % (11.8-14.3) Platelet Count 345 10^3/uL (140-450) Mean Platelet Volume 8.7 fL (6.9-10.8) Neutrophils (%) (Auto) 55.0 % (37.0-80.0) Lymphocytes (%) (Auto) 35.4 % (10.0-50.0) Monocytes (%) (Auto) 8.1 % (0.0-12.0) Eosinophils (%) (Auto) 0.8 % (0.0-7.0) Basophils (%) (Auto) 0.7 % (0.0-2.0) Neutrophils # (Auto) 4.4 10 ^3/uL (1.6-8.6) Lymphocytes # (Auto) 2.8 10 ^3/uL (0.4-5.4) Monocytes # (Auto) 0.7 10 ^3/uL (0-1.3) Eosinophils # (Auto) 0.1 10 ^3/uL (0-0.8) Basophils # (Auto) 0.1 10 ^3/uL (0-0.2) Nucleated Red Blood Cells 0.0 % Sodium Level 141 mmol/L (136-145) Potassium Level 3.5 mmol/L (3.5-5.1) Chloride Level 105 mmol/L (98-107) Carbon Dioxide Level 31 mmol/L (20-31) Anion Gap 5 (5-15) Blood Urea Nitrogen 9 mg/dL (9-23) Creatinine 0.67 mg/dL (0.550-1.02) Glomerular Filtration Rate Calc 99 mL/min (>90) BUN/Creatinine Ratio 13.4 (10.0-20.0) Serum Glucose 99 mg/dL (74-106) Hemoglobin A1c 6.6 % A1C (<5.7) Calcium Level 9.6 mg/dL (8.7-10.4) Vitamin B12 Level 337 pg/mL (211-911) Folic Acid 14.79 ng/mL (>5.38) Thyroid Stimulating Hormone (TSH) 2.14 uIU/mL (0.55-4.78) Other Laboratory Tests 05/07/24 15:02 Brief Hx & Hospital Course: 63-year-old female with a history of hypertension diabetes fibromyalgia history of brain aneurysm osteoarthritis came in complaining of dizziness and numbness to right side of the face. CT head was negative admitted for rule out stroke. Tele neurology consult by Dr. Dory Alejandro who advised aspirin Plavix and Lipitor. MRI brain was negative MRA angiogram of the brain negative. Carotid ultrasound negative echo 60 percent ejection fraction. Patient feels better and being discharged home on aspirin Plavix and Lipitor Consults/Reason for consult Tele neurologist Operations or Procedures CT head MRI brain MRA brain Condition at Discharge: Fair Final Diagnosis/Problems List Dizziness and numbness likely TIA: Rule out stroke: Consult for tele neurologist Dr. Dakota Alejandro appreciated, placed on aspirin Plavix and Lipitor 80 mg p.o. daily, MRI brain without contrast and MRA angiogram brain , both are negative Autonomic instability Hypertensive urgency Type 2 diabetes A1c 6.6 Fibromyalgia History of brain aneurysm Osteoarthritis CT head negative for any acute changes Carotid ultrasound negative Echo 60 % ejection fraction Discharge Disposition: Home Discharge Instruct/Medications Diet: Cardiac 2g Na,low cholest Activity: Light activity Follow Up/Referral: Resume all previous home medications Use new medications as prescribed Follow up with the primary Dr Medications: Aspirin Lipitor Plavix Transmitted to the pharmacy 39 (Time Taken for discharge summary 39 minutes) Discharge Statement: "Patient was advised to return to the ER or call 911 if any headaches, dizziness, shortness of breath, chest pain, abdominal pain, bleeding, fevers, or worsening of medical condition. Patient was counseled about treatment plan, medications, possible side effects, patientverbalized understanding. All questions were answered to the best of my ability. This discharge took greater then 30 minutes in planning, reviewing documentation, counseling the patient, and discussing with other team members." ASSESSMENT ASSESSMENT Hospital Course Uneventful Assessment Dizziness and numbness likely TIA: Rule out stroke: Consult for tele neurologist Dr. Dakota Alejandro appreciated, placed on aspirin Plavix and Lipitor 80 mg p.o. daily, MRI brain without contrast and MRA angiogram brain , both are negative Autonomic instability Hypertensive urgency Type 2 diabetes A1c 6.6 Fibromyalgia History of brain aneurysm Osteoarthritis CT head negative for any acute changes Carotid ultrasound negative Echo 60 % ejection fraction Date of Service: May 10, 2024 Billing Provider: BYRON RUIZ MD Common Visit Codes: [id number] DISCH DAY >30min BYRON RUIZ MD May 10, 2024 10:36
[2024-05-10 13:04] VITALS: BP 107/65; PULSE 91; RESP 19; TEMP 36.7; O2SAT 94
[2024-05-10 13:18] VITALS: BP 112/77; PULSE 104; RESP 17; TEMP 97.8; O2SAT 93
== END 2024-05-10 13:34 | disposition home or self-care (01) | DRG 47 ==
LOC: ER 14:15 → OVERFLOW 20:50 → EAST 05-08 04:32
PROVIDERS: ADMIT Family Medicine; ATTEND Family Medicine
DX: G45.9 Transient cerebral ischemic attack, unspecified (principal); G90.9 Disorder of the autonomic nervous system, unspecified; I10 Essential (primary) hypertension; I16.0 Hypertensive urgency; Z20.822 Contact with and (suspected) exposure to COVID-19; E11.9 Type 2 diabetes mellitus without complications; M79.7 Fibromyalgia; M19.90 Unspecified osteoarthritis, unspecified site
CPT/HCPCS: 36415; 70450; 70545; 70551; 80048; 80061; 80307; 81001; 82607; 82746; 83036; 84443; 85025; 87081; 87426; 87804; 93005; 93306; 93886; G0378

== ENCOUNTER 2024-05-23 11:00 | Emergency (ER) | payer MEDICAID ==
[~2024-05-23] VITALS: Ht 157.5 cm; Wt 93.6 kg
[~2024-05-23 11:00] MED LIST: ALBU108A5 INH; ASPI-628 PO; ATOR20TA50 PO; ATOR80TA PO; CLOP75TA28 PO
[2024-05-23 11:24] VITALS: BP 128/75; TEMP 98
[2024-05-23 11:26] VITALS: PULSE 93; RESP 18; O2SAT 96
--- NOTE | 2024-05-23 12:21 | ED.PDOC ---
Back pain HPI HPI Comments 63 year old PMHx fibromyalgia and Aneurysm presents for neck pain located near the occipital lobe and radiates down the left chest wall Had symptoms for 2 weeks Worsens when lateral movements Had no medications for these symptoms. Denies lightheadedness or dizziness Denies acid reflux, recurrent bitter/sour taste in mouth Denies shortness of breath Denies palpitations, leg swelling Denies recent trauma to the chest, history of significant trauma to the chest nor surgeries of the chest Denies fever chills nausea vomiting diarrhea Chief Complaint: Neck Pain Time Seen by MD: 11:14 Primary Care Provider: NONE Reviewed Notes: Nurses Notes, Medications, Allergies Allergies: Coded Allergies: NO KNOWN ALLERGIES (Unverified , 05/07/24) Home Meds Active Scripts Naproxen (Naproxen) 500 Mg Tab, 500 MG PO [id number] PRN for 3 Days, #6 TAB 0 Refills Prov:GUERO WOODARD [employer]JECT [employer] WORKER 05/23/24 Methocarbamol (Methocarbamol) 500 Mg Tab, 500 MG PO Q8HP PRN for 10 Days, #30 TAB 0 Refills Prov:GUERO WOODARD NP 05/23/24 Atorvastatin Calcium (Lipitor) 80 Mg Tab, 1 TAB PO DAILY, #90 TAB 1 Refill Prov:BYRON RUIZ MD 05/10/24 Clopidogrel Bisulfate (Plavix) 75 Mg Tab, 1 TAB PO DAILY, #90 TAB 1 Refill Prov:BYRON RUIZ MD 05/10/24 Aspirin (Aspirin Adult Low Dose) 81 Mg Tab, 81 MG PO DAILY, #90 TAB Prov:BYRON RUIZ MD 05/10/24 Reported Medications Atorvastatin Calcium (ATORVASTATIN CALCIUM) 20 Mg Tab, 1 TAB PO DAILY 05/08/24 Albuterol Sulfate (Albuterol Sulfate Hfa) 108 Mcg/Act Aer, INH 05/08/24 Information Source: Patient Mode of Arrival: Ambulatory Past Medical History Surgical History: Denies all surgeries DARKROOM 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: No Pertinent DARKROOM 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 Social History Smoker: Non-Smoker Alcohol: Denies ETOH Use Drugs: Denies Drug Use Lives In: Home All Other Systems: Reviewed and Negative (Per HPI) Physical Exam General Appearance: No Apparent Distress, Normal HEENT: Normal ENT Inspection, Pharynx Normal, TMs Normal Neck: Full Range of Motion, Non-Tender, Normal, Normal Inspection Respiratory: Chest Non-Tender, Lungs Clear, No Accessory Muscle Use, No Respiratory Distress, Normal Breath Sounds Cardiovascular: No Edema, No JVD, No Murmur, No Gallop, Normal Peripheral Pulses, Regular Rate/Rhythm Breast Exam: Deferred Gastrointestinal: No Organomegaly, Non Tender, No Pulsatile Mass, Normal Bowel Sounds, Soft Genitalia: Deferred Pelvic: Deferred Rectal: Deferred Extremities: No calf tenderness, Normal capillary refill, Normal inspection, Normal range of motion, Non-tender, No pedal edema Musculoskeletal : Apperance: Normal Neurologic: Alert, No Motor Deficits, Normal Affect, Normal Mood, No Sensory Deficits Cerebellar Function: Normal Reflexes: Normal Skin: Dry, Normal Color, Warm Lymphatic: No Adenopathy Was a procedure done? Was a procedure done?: No Back Pain Differential Dx Differential Diagnosis: Musculoskeletal Pain, Strain, Other X-Ray, Labs, Meds, VS Vital Signs Date Time Temp Pulse Resp B/P (MAP) Pulse Ox O2 Delivery O2 Flow Rate FiO2 05/23/24 11:26 93 18 96 Room Air 0 05/23/24 11:24 98.0 93 18 128/75 (92) 96 98.0 05/23/24 11:08 98.0 93 18 128/75 (92) 96 Current Medications Medications (Trade) Dose Ordered Sig/Obi Route Start Time Stop Time Status Last Admin Acetaminophen/ Hydrocodone Bitart ([place] 10/325MG Tab) 1 tab ONCE ONCE PO 05/23/24 12:30 05/23/24 12:39 DC 05/23/24 12:43 Ketorolac Tromethamine (Toradol Injection) 30 mg ONCE ONCE IM 05/23/24 12:30 05/23/24 12:39 DC 05/23/24 12:43 X-Ray, Labs, Meds, VS Comment + neck pain radiating to upper extremities ED Workup: Defer at this time given recent work up. Given History, Exam the patient appears to have a cervical radiculopathy. Patient appears to be low risk for complications or other emergent conditions such as anginal equivalent, ubaldo cervical instability, arterial dissection, osteomyelitis, epidural abscess, central cord syndrome, c-spine fracture, other spinal emergencies Rx: NSAIDs, outpatient physical therapy evaluation and recommendation for home exercises in the interim Disposition: Discharge. The patient has been given strict return precautions and understands the need to follow up within 48 hours with their primary care provider Time of 1ST Reevaluation: 13:00 Reevaluation 1ST: Improved Patient Education/Counseling: Diagnosis, Treatment Family Education/Counseling: Diagnosis, Treatment Departure 1 Departure Time of Disposition: 13:34 Impression: Primary Impression: Cervicalgia Disposition: 01 HOME / SELF CARE / HOMELESS Condition: Stable e-Prescriptions Naproxen (Naproxen) 500 Mg Tab 500 MG PO [id number] PRN for 3 Days, #6 TAB 0 Refills Prov: GUERO WOODARD NP 05/23/24 Methocarbamol (Methocarbamol) 500 Mg Tab 500 MG PO Q8HP PRN for 10 Days, #30 TAB 0 Refills Prov: GUERO WOODARD NP 05/23/24 Discharged With: Self Critical Care Note Critical Care Time?: No Stability Stability form required: No Heart Score Heart Score: Heart Score Response (Comments) Value History N/A 0 EKG N/A 0 Age N/A 0 Risk Factors N/A 0 Troponin N/A 0 Total 0 GUERO WOODARD NP May 23, 2024 12:21
[2024-05-23] MEDS: HYDROcodone-ACET 10/325MG TAB PO ONE (12:43)
[2024-05-23] MEDS: KETOROLAC TROMETH 30 MG/ML 1ML VIAL IM ONE (12:43)
[2024-05-23] MEDS ORDERED: TRAM50TA2 PO (13:36)
[2024-05-23] MEDS ORDERED: METH-1181 PO (13:36)
[2024-05-23] MEDS ORDERED: NAPR-746 PO (13:37)
== END 2024-05-23 13:48 | disposition home or self-care (01) ==
LOC: ER 11:00
DX: M54.2 Cervicalgia (principal); R07.89 Other chest pain; Z79.82 Long term (current) use of aspirin; Z79.899 Other long term (current) drug therapy
CPT/HCPCS: 96372; 99283; J1885